=== PATIENT | female | born 1950 | race Caucasian/White ===

== ENCOUNTER → 2016-06-03 | Outpatient (CLI) | payer MEDICARE ==
--- NOTE | 2016-06-04 13:13 | MM ---
Reason for exam: screening (asymptomatic). Last mammogram was performed 1 year and 7 months ago. History: Patient is postmenopausal and has history of colon cancer at age 43. Took hormonal contraceptives for 1 year beginning at age 18. Physical Findings: A clinical breast exam by your physician is recommended on an annual basis and results should be correlated with mammographic findings. MG Screening Mammo w CAD Bilateral CC and MLO view(s) were taken. Prior study comparison: November 09, 2014, bilateral MG screening mammo w CAD. December 26, 2012, bilateral digital screening mammo w/CAD. There are scattered fibroglandular densities. No significant changes when compared with prior studies. ASSESSMENT: Benign, BI-RAD 2 RECOMMENDATION: Routine screening mammogram of both breasts in 1 year.
== END | disposition home or self-care (01) ==
LOC: RADMAMWWP 10:51
PROVIDERS: ATTEND Internal Medicine
DX: Z12.31 Encounter for screening mammogram for malignant neoplasm of breast (principal)

== ENCOUNTER 2016-10-27 07:47 | Day surgery (SDC) | payer MEDICARE ==
[2016-10-21 10:35] VITALS: BMI 26.5
[~2016-10-27 07:47] MED LIST: LACTATED RINGERS 1,000 ML IV SCH
[2016-10-27] MEDS: PHENYLEPHRINE 10% OPHTH DROPS 5 ML BTL OP ONE ×3 (09:01→09:23)
[2016-10-27] MEDS: CYCLOPENTOLATE 1% OPHTH SOLN 2 ML BTL OP ONE ×3 (09:06→09:26)
[2016-10-27 09:08] VITALS: RESP 16; TEMP 97.6
[2016-10-27] MEDS: FLURBIPROFEN 0.03% OPHTH DROPS 2.5 ML BTL OP ONE ×3 (09:09→09:29)
[2016-10-27] MEDS ORDERED: LIDOCAINE 1% 20 ML VIAL (10MG/ML) FOR IV START INTRADERMA ONE (09:21)
[2016-10-27] MEDS ORDERED: DEXAMETHASONE SOD PHOSPHATE 10 MG/ML 1 ML VIAL IV ONE (09:27)
[2016-10-27] MEDS ORDERED: ONDANSETRON 4 MG/2 ML VIAL IVP ONE (09:27)
[2016-10-27] MEDS ORDERED: fentaNYL (PF) 50 MCG/ML 2 ML AMP ONE (09:52)
[2016-10-27] MEDS ORDERED: PROPOFOL 10 MG/ML 20 ML VIAL IV ONE (09:52)
[2016-10-27] MEDS ORDERED: MIDAZOLAM 2 MG/2 ML VIAL ONE (09:52)
[2016-10-27] MEDS ORDERED: HYALURONATE SODIUM INTRAOCULAR 1 EACH SYRINGE (10MG/ML) INTRAOCULA ONE (10:03)
[2016-10-27] MEDS ORDERED: BALANCED SALT IRRIG SOLN COMB2 15 ML IRRIG.SOLN INTRAOCULA ONE (10:03)
[2016-10-27] MEDS ORDERED: EPINEPHrine (PF) 0.5 ML in BALANCED SALT IRRIG SOLN COMB2 500 ML IRRIGATION ONE (10:05)
--- NOTE | 2016-10-27 10:15 | P.OP ---
Date of Procedure: 10/27/16 Preoperative Diagnosis: Postoperative Diagnosis: Procedure(s) Performed: PREOPERATIVE DIAGNOSIS: Cataract, right eye. POSTOPERATIVE DIAGNOSIS: Cataract, right eye. OPERATION: Phacoemulsification cataract, right eye. DESCRIPTION OF PROCEDURE: The patient was taken to the preoperative holding area. Intravenous Propofol was given so as to bring about adequate sedation. The following mixture was given for local anesthesia: 5 mL of 2% lidocaine, 5 mL of 0.75% Marcaine, and 1 mL of Wydase. Approximately 4 mL was injected in the retrobulbar space of the surgical eye. Additional 1 mL was then directed to the temporal area of the surgical eye. This was performed to allow adequate neurological block of the facial muscles. The patient was revived and then taken into the operative room. The patient was prepped and draped in the usual sterile manner for the operative eye. A lid speculum was put into position. The conjunctiva was resected back from the limbus in the 12 o'clock position. Bleeding was controlled with electrocautery. A #69 blade was then used and a half-thickness scleral incision approximately 1-mm posterior to the limbus was made on bare sclera. This was shelved in the clear cornea using a crescent knife. Next a 15-degree blade was used to make a stab incision at the 3 o' clock position at the corneolimbal interface. Keratome blade was then used and the superior wound was extended into the anterior chamber. Viscoelastic was injected into the anterior chamber and to maintain its form. Next, a cystotome was used and a continuous anterior capsulotomy was made without difficulty. Hydrodissection using a blunt cannula and BSS was performed. Phaco probe was then employed and a groove extending from 12 to 6 o'clock in the lens was created. A Terell wand was used through the stab incision so as to perform a divide and conquer technique. Next an irrigation aspiration probe was utilized and any residual cortex was removed from the eye. Again, viscoelastic was injected into the anterior chamber. An Paulo posterior chamber lens implant was placed in the cartridge and injected into the anterior chamber without difficulty. The [employer] Groupey hook was utilized to spin the lens into position and this was again performed without any difficulty. The irrigation and aspiration probe was again employed and any residual viscoelastic was removed from the eye. Then BSS was injected into the limbal stab incision and the anterior chamber re-inflated. The conjunctiva was reapproximated using electrocautery. One drop of 0.25% Timoptic was placed over the corneal along with TobraDex ophthalmic ointment. Two sterile patches and a Stein eye shield were taped into position. The patient was transported to the recovery room in stable condition. Implants: Pathology: none sent Condition: stable Disposition: same day Indications for Procedure: Operative Findings: Description of Procedure:
[2016-10-27 10:37] VITALS: BP 174/86; PULSE 66
[2016-10-27] MEDS ORDERED: BUPIVACAINE (PF) 0.75% 5 ML, LIDOCAINE 4% (PF) 5 ML, HYALURONIDASE, HUMAN RECOMB 150 UNIT MISCELLANE ONE ×3 (23:00)
[2016-10-27] MEDS ORDERED: GENTAMICIN/PREDNISOL AC OPHTH OINT 3.5GM OPHTHALMIC ONE (23:00)
[2016-10-27] MEDS ORDERED: TIMOLOL 0.5% OPHTH SOLN (PF) 0.2 ML DROPERETTE OP ONE (23:00)
== END 2016-10-27 10:55 | disposition home or self-care (01) ==
LOC: OR 07:47
PROVIDERS: ATTEND Ophthalmology
DX: H26.9 Unspecified cataract (principal); I10 Essential (primary) hypertension; F17.200 Nicotine dependence, unspecified, uncomplicated; Z85.038 Personal history of other malignant neoplasm of large intestine; Z79.82 Long term (current) use of aspirin; Z79.899 Other long term (current) drug therapy
CPT/HCPCS: 66984; V2632; J2001; J2250; J3470; J1100; J2405; J0171; J3010; J2704

== ENCOUNTER → 2017-09-01 | Outpatient (CLI) | payer MEDICARE ==
--- NOTE | 2017-09-02 10:52 | MM ---
Reason for exam: screening (asymptomatic). Last mammogram was performed 1 year and 3 months ago. History: Patient is postmenopausal and has history of colon cancer at age 43. Took hormonal contraceptives for 1 year beginning at age 18. Physical Findings: A clinical breast exam by your physician is recommended on an annual basis and results should be correlated with mammographic findings. MG 3D Screening Mammo W/Cad Bilateral CC and MLO view(s) were taken. Prior study comparison: June 03, 2016, bilateral MG screening mammo w CAD. November 09, 2014, bilateral MG screening mammo w CAD. There are scattered fibroglandular densities. There is no discrete abnormality. Benign bilateral axillary lymph nodes are redemonstrated. ASSESSMENT: Negative, BI-RAD 1 RECOMMENDATION: Routine screening mammogram of both breasts in 1 year.
== END | disposition home or self-care (01) ==
LOC: RADMAMWWP 11:22
PROVIDERS: ATTEND Internal Medicine
DX: Z12.31 Encounter for screening mammogram for malignant neoplasm of breast (principal)
CPT/HCPCS: 77063; 77067

== ENCOUNTER 2018-05-04 11:01 | Emergency (ER) | payer MEDICARE ==
[2018-05-04 11:08] VITALS: RESP 18
[2018-05-04] MEDS ORDERED: LIDOCAINE 5% PATCH TOPICAL STA (11:43)
[2018-05-04] MEDS ORDERED: HYDROcodone/APAP 5-325MG 1 EACH TAB PO STA (11:43)
--- NOTE | 2018-05-04 12:12 | ED ---
General Adult HPI - General Chief complaint: Skin/Abscess/Foreign Body Stated complaint: in pain/not sleeping Time Seen by Provider: 05/04/18 11:10 Source: patient, RN notes reviewed Mode of arrival: ambulatory Limitations: no limitations - History of Present Illness Initial comments: Patient 68-year-old female presenting to the emergency room today with a chief complaint of a she was rash to the right side. She does admit that she saw the family doctor was diagnosed this started antiviral medications. She's been using ibuprofen for pain with little relief of the symptoms. States she has not been able to sleep. Patient denies any other complaints symptoms. Patient denies any recent fever, chills, shortness of breath, chest pain, back pain, abdominal pain, nausea or vomiting, headaches or visual changes, or any other complaints. - Related Data Home Medications Medication Instructions Recorded Confirmed Aspirin 325 mg PO DAILY 04/14/16 05/04/18 Atenolol [Tenormin] 50 mg PO DAILY 04/14/16 05/04/18 Ergocalciferol [Vitamin D2] 50,000 unit PO WE 04/14/16 05/04/18 Lisinopril-Hctz 20-25 mg 1 tab PO DAILY 05/04/18 05/04/18 [Zestoretic 20-25] valACYclovir HCL [Valtrex] 1,000 mg PO Q12HR 05/04/18 05/04/18 Previous Rx's Medication Instructions Recorded Hydrocodone/Acetaminophen [[place] 1 each PO Q6HR PRN #12 tab 05/04/18 5-325] Lidocaine [Lidoderm 5% Patch] 1 patch TRANSDERM DAILY #7 patch 05/04/18 Allergies Allergy/AdvReac Type Severity Reaction Status Date / Time No Known Allergies Allergy Verified 05/04/18 11:26 Review of Systems ROS Statement: Those systems with pertinent positive or pertinent negative responses have been documented in the HPI. ROS Other: All systems not noted in ROS Statement are negative. Past Medical History Past Medical History: Cancer, Hypertension Additional Past Medical History / Comment(s): colon and liver ca History of Any Multi-Drug Resistant Organisms: None Reported Past Surgical History: Bowel Resection, Hysterectomy Additional Past Surgical History / Comment(s): lymph node removed right axilla, LIVER SURGERY FOR COLON CANCER X 6 YEARS AGO Past Anesthesia/Blood Transfusion Reactions: Previous Problems w/ Anesthesia Additional Past Anesthesia/Blood Transfusion Reaction / Comment(s): Aspirated one time from colonoscopy anesthesia Past Psychological History: No Psychological Hx Reported Smoking Status: Current every day smoker Past Alcohol Use History: None Reported Past Drug Use History: None Reported - Past Family History Mother Family Medical History: Unable to Obtain General Exam - General Exam Comments Initial Comments: General: The patient is awake and alert, in no distress, and does not appear acutely ill. Eye: Pupils are equal, round and reactive to light, extra-ocular movements are intact. No nystagmus. There is normal conjunctiva bilaterally. No signs of icterus. Ears, nose, mouth and throat: There are moist mucous membranes and no oral lesions. Neck: The neck is supple, there is no tenderness or JVD. Cardiovascular: There is a regular rate and rhythm. No murmur, rub or gallop is appreciated. Respiratory: Lungs are clear to auscultation, respirations are non-labored, breath sounds are equal. No wheezes, stridor, rales, or rhonchi. Musculoskeletal: Normal ROM, no tenderness. Neurological: A&O x 3. CN II-XII intact, There are no obvious motor or sensory deficits. Coordination appears grossly intact. Speech is normal. Skin: Does have a few shingle spots located to the posterior aspect of the right side with a few wrap around to the front. Patient tender posteriorly in this area of the rash. Psychiatric: Cooperative, appropriate mood & affect, normal judgment. Limitations: no limitations Course Vital Signs 05/04/18 11:04 Temperature 98.0 F Pulse Rate 73 Respiratory 18 Rate Blood Pressure 187/95 O2 Sat by Pulse 98 Oximetry Medical Decision Making - Medical Decision Making Patient will be given Lidoderm patch or the emergency room also a Clearwater and short prescription to go home with the use if needed. She is advised of Lidoderm patch relief the symptoms that she does not need to take a Clearwater. She is advised that she may break the pills and a half to if needed. Disposition Clinical Impression: Herpes zoster Disposition: HOME SELF-CARE Condition: Good Instructions: Shingles (ED) Additional Instructions: Please use medication as discussed. Please follow-up with family doctor in the next 2 days of symptoms have not improved. Please return to emergency room if the symptoms increase or worsen or for any other concerns. Prescriptions: Hydrocodone/Acetaminophen [[place] 5-325] 1 each PO Q6HR PRN #12 tab PRN Reason: Pain Lidocaine [Lidoderm 5% Patch] 1 patch TRANSDERM DAILY #7 patch Is patient prescribed a controlled substance at d/c from ED?: No Referrals: Catherine Buchanan MD [Primary Care Provider] - 1-2 days Time of Disposition: 12:11
[2018-05-04 12:41] VITALS: BP 142/83; PULSE 74; TEMP 98.3
== END 2018-05-04 12:40 | disposition home or self-care (01) ==
LOC: EC 11:01
DX: B02.9 Zoster without complications (principal); I10 Essential (primary) hypertension; F17.200 Nicotine dependence, unspecified, uncomplicated; Z85.038 Personal history of other malignant neoplasm of large intestine; Z85.05 Personal history of malignant neoplasm of liver; Z90.710 Acquired absence of both cervix and uterus; Z98.890 Other specified postprocedural states; Z79.82 Long term (current) use of aspirin; Z79.899 Other long term (current) drug therapy
CPT/HCPCS: 99283

== ENCOUNTER → 2018-12-23 | Outpatient (CLI) | payer MEDICARE ==
--- NOTE | 2018-12-26 14:18 | MM ---
Reason for exam: screening (asymptomatic). Last mammogram was performed 1 year and 4 months ago. History: Patient is postmenopausal and has history of colon cancer at age 43. Took hormonal contraceptives for 1 year beginning at age 18. Physical Findings: A clinical breast exam by your physician is recommended on an annual basis and results should be correlated with mammographic findings. MG Screening Mammo w CAD Bilateral CC and MLO view(s) were taken. Prior study comparison: September 01, 2017, bilateral MG 3d screening mammo w/cad. June 03, 2016, bilateral MG screening mammo w CAD. There are scattered fibroglandular densities. There are benign appearing round calcifications bilaterally. There is no discrete abnormality. ASSESSMENT: Benign, BI-RAD 2 RECOMMENDATION: Routine screening mammogram of both breasts in 1 year.
== END | disposition home or self-care (01) ==
LOC: RADMAMWWP 11:26
PROVIDERS: ATTEND Internal Medicine
DX: Z12.31 Encounter for screening mammogram for malignant neoplasm of breast (principal)
CPT/HCPCS: 77067

== ENCOUNTER 2019-12-28 06:57 | Emergency (ER) | payer MEDICARE ==
[2019-12-28 07:13] VITALS: TEMP 97.9
[2019-12-28] MEDS ORDERED: KETOROLAC 15 MG/ML 1 ML VIAL IVP STA (07:32)
[2019-12-28] MEDS ORDERED: SODIUM CHLORIDE 0.9% 1,000 ML IV STA (07:32)
--- NOTE | 2019-12-28 07:46 | ED ---
General Adult HPI - General Chief complaint: Abdominal Pain Stated complaint: LT flank pain Time Seen by Provider: 12/28/19 07:10 Source: patient, RN notes reviewed, old records reviewed Mode of arrival: ambulatory Limitations: no limitations - History of Present Illness Initial comments: This is a 69-year-old female presents to the emergency department stating that last night at 11 PM she started having left-sided flank pain which radiates around to the abdomen. Patient states she also became very nauseated and vomited times one. Patient states it's currently much better. Patient states troponin I was a pretty constantly and Aleve did help a little bit did not take it completely away. Patient states she had no injury or trauma. Patient denies any dysuria hematuria urinary frequency. Patient denies any diarrhea. Patient denies any chest pain difficulty breathing. Patient denies any recent fever chills or cough. Patient had a kidney stone history some 25 years ago - Related Data Home Medications Medication Instructions Recorded Confirmed Aspirin 325 mg PO DAILY 04/14/16 05/04/18 Ergocalciferol [Vitamin D2] 50,000 unit PO WE 04/14/16 05/04/18 atenoloL [Tenormin] 50 mg PO DAILY 04/14/16 05/04/18 Lisinopril-Hctz 20-25 mg 1 tab PO DAILY 05/04/18 05/04/18 [Zestoretic 20-25] valACYclovir HCL [Valtrex] 1,000 mg PO Q12HR 05/04/18 05/04/18 Previous Rx's Medication Instructions Recorded Hydrocodone/Acetaminophen [[place] 1 each PO Q6HR PRN #12 tab 05/04/18 5-325] Lidocaine [Lidoderm 5% Patch] 1 patch TRANSDERM DAILY #7 patch 05/04/18 Ketorolac [Toradol] 10 mg PO Q6HR #15 tab 12/28/19 Tamsulosin [Flomax] 0.4 mg PO DAILY #10 cap 12/28/19 Allergies Allergy/AdvReac Type Severity Reaction Status Date / Time No Known Allergies Allergy Verified 05/04/18 11:26 Review of Systems ROS Statement: Those systems with pertinent positive or pertinent negative responses have been documented in the HPI. ROS Other: All systems not noted in ROS Statement are negative. Past Medical History Past Medical History: Cancer, Hypertension Additional Past Medical History / Comment(s): colon and liver ca History of Any Multi-Drug Resistant Organisms: None Reported Past Surgical History: Bowel Resection, Hysterectomy Additional Past Surgical History / Comment(s): lymph node removed right axilla, LIVER SURGERY FOR COLON CANCER X 6 YEARS AGO Past Anesthesia/Blood Transfusion Reactions: Previous Problems w/ Anesthesia Additional Past Anesthesia/Blood Transfusion Reaction / Comment(s): Aspirated one time from colonoscopy anesthesia Past Psychological History: No Psychological Hx Reported Smoking Status: Current every day smoker Past Alcohol Use History: None Reported Past Drug Use History: None Reported - Past Family History Mother Family Medical History: Unable to Obtain General Exam - General Exam Comments Initial Comments: GENERAL: Patient is well-developed and well-nourished. Patient is nontoxic and well- hydrated and is in mild distress. ENT: Neck is soft and supple. No significant lymphadenopathy is noted. Oropharynx is clear. Moist mucous membranes. Neck has full range of motion without eliciting any pain. EYES: The sclera were anicteric and conjunctiva were pink and moist. Extraocular movements were intact and pupils were equal round and reactive to light. Eyelids were unremarkable. PULMONARY: Unlabored respirations. Good breath sounds bilaterally. No audible rales rhonchi or wheezing was noted. CARDIOVASCULAR: There is a regular rate and rhythm without any murmurs gallops or rubs. ABDOMEN: Soft and nontender with normal bowel sounds. SKIN: Skin is clear with no lesions or rashes and otherwise unremarkable. NEUROLOGIC: Patient is alert and oriented x3. Cranial nerves II through XII are grossly intact. Motor and sensory are also intact. Normal speech, volume and content. Symmetrical smile. MUSCULOSKELETAL: Normal extremities with adequate strength and full range of motion. No lower extremity swelling or edema. No calf tenderness. LYMPHATICS: No significant lymphadenopathy is noted PSYCHIATRIC: Normal psychiatric evaluation. Limitations: no limitations Course Vital Signs 12/28/19 07:10 Temperature 97.9 F Pulse Rate 86 Respiratory 19 Rate Blood Pressure 179/102 O2 Sat by Pulse 98 Oximetry Medical Decision Making - Medical Decision Making Computed tomography scan shows a 3 mm stone in the left UVJ. Patient received Toradol Dilaudid and Zofran emergency department. - Lab Data Result diagrams: 12/28/19 07:48 12/28/19 07:48 Lab Results 12/28/19 12/28/19 12/28/19 Range/Units 07:48 07:48 07:48 WBC 10.5 (3.8-10.6) k/uL RBC 4.46 (3.80-5.40) m/uL Hgb 14.1 (11.4-16.0) gm/dL Hct 42.0 (34.0-46.0) % MCV 94.1 (80.0-100.0) fL MCH 31.7 (25.0-35.0) pg MCHC 33.7 (31.0-37.0) g/dL RDW 12.2 (11.5-15.5) % Plt Count 219 (150-450) k/uL Neutrophils % 88 % Lymphocytes % 9 % Monocytes % 3 % Eosinophils % 0 % Basophils % 1 % Neutrophils # 9.2 H (1.3-7.7) k/uL Lymphocytes # 0.9 L (1.0-4.8) k/uL Monocytes # 0.3 (0-1.0) k/uL Eosinophils # 0.0 (0-0.7) k/uL Basophils # 0.1 (0-0.2) k/uL Sodium 139 (137-145) mmol/L Potassium 3.7 (3.5-5.1) mmol/L Chloride 106 (98-107) mmol/L Carbon Dioxide 22 (22-30) mmol/L Anion Gap 11 mmol/L BUN 18 H (7-17) mg/dL Creatinine 1.11 H (0.52-1.04) mg/dL Est GFR (CKD-EPI)AfAm 58 (>60 ml/min/1.73 sqM) Est GFR (CKD-EPI)NonAf 50 (>60 ml/min/1.73 sqM) Glucose 125 H (74-99) mg/dL Calcium 10.3 H (8.4-10.2) mg/dL Total Bilirubin 0.5 (0.2-1.3) mg/dL AST 25 (14-36) U/L ALT 19 (4-34) U/L Alkaline Phosphatase 72 (38-126) U/L Total Protein 7.7 (6.3-8.2) g/dL Albumin 4.0 (3.5-5.0) g/dL Amylase 44 (30-110) U/L Lipase 106 (23-300) U/L Urine Color Yellow Urine Appearance Cloudy H (Clear) Urine pH 5.5 (5.0-8.0) Ur Specific [place] 1.024 (1.001-1.035) Urine Protein Trace H (Negative) Urine Glucose (UA) Negative (Negative) Urine Ketones Negative (Negative) Urine Blood Moderate H (Negative) Urine Nitrite Negative (Negative) Urine Bilirubin Negative (Negative) Urine Urobilinogen <2.0 (<2.0) mg/dL Ur Leukocyte Esterase Moderate H (Negative) Urine RBC 79 H (0-5) /hpf Urine WBC 40 H (0-5) /hpf Ur Squamous Epith Cells 1 (0-4) /hpf Calcium Oxalate Crystal Many H (None) /hpf Amorphous Sediment Rare H (None) /hpf Urine Bacteria Rare H (None) /hpf Hyaline Casts 3 H (0-2) /lpf Urine Mucus Rare H (None) /hpf Disposition Clinical Impression: Kidney stone on left side Disposition: HOME SELF-CARE Condition: Good Prescriptions: Tamsulosin [Flomax] 0.4 mg PO DAILY #10 cap Ketorolac [Toradol] 10 mg PO Q6HR #15 tab Is patient prescribed a controlled substance at d/c from ED?: No Referrals: Lexx Florentino MD [STAFF PHYSICIAN] - 1-2 days Time of Disposition: 09:06
[2019-12-28 08:06] LABS: Basophils # (A) 0.1 k/uL (0-0.2); Basophils % (A) 1 %; Eosinophils % (A) 0 %; HGB 14.1 gm/dL (11.4-16.0); Lymphocytes # (A) 0.9 k/uL (1.0-4.8); Lymphocytes % (A) 9 %; MCH 31.7 pg (25.0-35.0); MCHC 33.7 g/dL (31.0-37.0); MCV 94.1 fL (80.0-100.0); Mean Platelet Volume 7.6; Monocytes # (A) 0.3 k/uL (0-1.0); Monocytes % (A) 3 %; Neutrophils # (A) 9.2 k/uL (1.3-7.7); Neutrophils % (A) 88 %; Platelet Count 219 k/uL (150-450); RBC 4.46 m/uL (3.80-5.40); RDW 12.2 % (11.5-15.5); WBC 10.5 k/uL (3.8-10.6)
[2019-12-28 08:16] LABS: Calcium 10.3 mg/dL (8.4-10.2); Potassium 3.7 mmol/L (3.5-5.1); Total Bilirubin 0.5 mg/dL (0.2-1.3); Total Protein 7.7 g/dL (6.3-8.2)
[2019-12-28 08:29] LABS: Amorphous Sediment,Urine Rare /hpf; Appearance,Urine Cloudy (Clear); Bacteria,Urine Rare /hpf; Bilirubin,Urine Negative (Negative); Blood,Urine Moderate (Negative); Calcium Oxalate Crystals,Urine Many /hpf; Color,Urine Yellow; Glucose,Urine (UA) Negative (Negative); Hyaline Casts,Urine 3 /lpf (0-2); Ketones,Urine Negative (Negative); Leukocyte Esterase,Urine Moderate (Negative); Mucus,Urine Rare /hpf; Nitrite,Urine Negative (Negative); PH, Urine 5.5 (5.0-8.0); Protein,Urine Trace (Negative); RBC,Urine 79 /hpf (0-5); Specific Gravity,Urine 1.024 (1.001-1.035); Squamous Epithelial Cell,Urine 1 /hpf (0-4); Urobilinogen,Urine <2.0 mg/dL (<2.0); WBC,Urine 40 /hpf (0-5)
--- NOTE | 2019-12-28 08:37 | CT ---
EXAMINATION TYPE: CT abdomen pelvis wo con DATE OF EXAM: 12/28/2019 HISTORY: Lt flank pain CT DLP: 584.5 mGycm. Automated Exposure Control for Dose Reduction was Utilized. TECHNIQUE: CT scan of the abdomen and pelvis is performed without oral or IV contrast. COMPARISON: MRI kidney May 06, 2015. CT abdomen and pelvis September 27, 2013 . FINDINGS: Within the limitations of a non-contrast study, the following observations are made. LUNG BASES: Mild cardiomegaly is present. LIVER/GB: Stable posterior calcification near right liver margin axial image 35 presumed benign. PANCREAS: No significant abnormality is seen. SPLEEN: Stable diffuse small calcifications in the spleen presumed benign.. ADRENALS: Persistent right adrenal mass now measuring 3.3 x 2.1 cm axial image 33 perhaps slightly la rger from older studies. This mass has areas of calcification and low density. Suspect benign myolipo ma. KIDNEYS: There is new 3 mm nonobstructing calculus upper pole right kidney coronal image 64. No right -sided hydronephrosis. Some motion artifact degradation but suspect new 1 to 2 mm nonobstructing calc ulus lower pole of the left kidney coronal image 61. New 3 mm obstructing calculus left UVJ axial brendan ge 116 is causing mild to moderate left-sided hydronephrosis and hydroureter with mild to moderate pe rinephric fat stranding along the proximal to mid left ureter. Poorly distended bladder with lobulate d contour. Prior exophytic cystic lesion upper pole of the right kidney is not seen and presumed has been aspirated or surgically removed or treated in interval. BOWEL: Sigmoid colonic diverticulosis. Surgical changes from right partial colectomy and small bowel anastomosis. Prominent vessel in the right paracolic gutter is redemonstrated. GENITAL ORGANS: Uterus surgically absent or markedly atrophic. LYMPH NODES: No greater than 1cm abdominal or pelvic lymph nodes are appreciated. OSSEOUS STRUCTURES: Grade 1 anterolisthesis L4 on L5. OTHER: [id number] calcified plaque abdominal aorta extends into branch vessels. IMPRESSION: There is new 3 mm calculus at left UVJ causing [id number] left-sided hydronephrosis .
--- NOTE | 2019-12-28 08:43 | XR ---
EXAMINATION TYPE: XR KUB DATE OF EXAM: 12/28/2019 8:27 AM CLINICAL HISTORY: Left flank pain, history of kidney stones. TECHNIQUE: Single upright KUB image of the abdomen is obtained. COMPARISON: CT abdomen and pelvis study earlier today. FINDINGS: Scattered gas is seen in non-distended stomach and small bowel loops. Gas and fecal materia l is seen in non-distended colon. Vascular calcification of the gastric region and in the periphery o f the pelvis. Cardiomegaly is present. No pneumoperitoneum. IMPRESSION: Overall nonobstructive bowel gas pattern. The 3 mm calculus at left UVJ on CT is less wel l seen on plain film due to size and patient's body habitus.
[2019-12-28] MEDS ORDERED: ONDANSETRON 4 MG/2 ML VIAL IVP STA (08:51)
[2019-12-28] MEDS ORDERED: HYDROmorphone 0.5 MG/0.5 ML SYRINGE IVP STA (08:51)
[2019-12-28] MEDS ORDERED: ACET/COD 300 MG/30 MG STARTER PACK 6 TAB BTL PO STA (09:07)
[2019-12-28 09:44] VITALS: BP 169/99; PULSE 92; RESP 16
== END 2019-12-28 09:44 | disposition home or self-care (01) ==
LOC: EC 06:57
DX: N13.2 Hydronephrosis with renal and ureteral calculous obstruction (principal); I10 Essential (primary) hypertension; F17.200 Nicotine dependence, unspecified, uncomplicated; Z79.82 Long term (current) use of aspirin; Z79.899 Other long term (current) drug therapy; Z85.038 Personal history of other malignant neoplasm of large intestine; Z85.05 Personal history of malignant neoplasm of liver
CPT/HCPCS: 36415; 80053; 82150; 83690; 85025; 81001; 87086; 74018; 74176; 99285; 96374; 96375 ×2; 96361; J2405; J1885; J1170

== ENCOUNTER → 2021-02-20 | Outpatient (CLI) | payer MEDICARE ==
--- NOTE | 2021-02-20 16:14 | BD ---
EXAMINATION TYPE: Axial Bone Density DATE OF EXAM: 02/20/2021 COMPARISON: NONE CLINICAL HISTORY: 70 YR OLD FEMALE......ICD-10 CODE: N95.8 MENOPAUSAL Height: 59.8 Weight: 150 FRAX RISK QUESTIONS: Secondary Osteoporosis: YES 3. Menopause before 45: YES 5. Chronic liver disease: METS TO LOBE, REMOVAL, FROM COLON CA Current Tobacco Use: YES RISK FACTORS HISTORY OF: Postmenopausal woman: YES AT 30 YRS OLD...TOTAL HYST Take estrogen and/or progesterone medications: YES, FOR AT ABOUT A YR ONLY Hyperparathyroidism: YES, SURGICAL REMOVAL OF 1 OR 2 Adrenal Insufficiency: NO MEDICATIONS: Additional Medications: BP MEDS, CHEMO HX FOR COLON CA, VIT D Additional History: RENAL HX, STONES, HYPERCALCINEMIA, HYPERTENSION, HX OF COLON CA, HYPERPARATHYROID ISM EXAM MEASUREMENTS: Bone mineral densitometry was performed using the [employer] System. Bone mineral density as measured about the Lumbar spine is: ----- L1-L4(G/cm2): 1.058 T Score Values are as follows: ----- L1: -0.8 ----- L2: -3.0 ----- L3: -1.4 ----- L4: 1.3 ----- L1-L4: -1.0 Bone mineral density FIRST DEXA AT [facility] Bone mineral density about the R hip (g/cm2): 0.816 Bone mineral density about the L hip (g/cm2): 0.834 T Score values are as follows: -----R Neck: -1.4 -----L Neck: -1.5 -----R Total: -1.5 -----L Total: -1.4 Bone mineral density FIRST DEXA AT [facility] FRAX%s: THERE IS A 11.1% CHANCE FOR A MAJOR OSTEOPOROTIC FX AND A 3.1% FOR HIP......PROBABILITY FO R FX IN 10 YRS TIME IMPRESSION: Osteopenia (T Score between -2.5 and -1). There is slightly increased risk of fracture and the patient may be considered for treatment. Re-Screen 2-5 years. NOTE: T-SCORE=SD OF THE YOUNG ADULT MEAN.
== END | disposition home or self-care (01) ==
LOC: RADBDWWP 10:39
PROVIDERS: ATTEND Internal Medicine
DX: M81.0 Age-related osteoporosis without current pathological fracture (principal); M85.89 Other specified disorders of bone density and structure, multiple sites; Z78.0 Asymptomatic menopausal state; Z85.038 Personal history of other malignant neoplasm of large intestine
CPT/HCPCS: 77080

== ENCOUNTER → 2022-01-20 | Outpatient (CLI) | payer MEDICARE | END | disposition home or self-care (01) | LOC: LABWHC1 15:46 | PROVIDERS: ATTEND Internal Medicine | DX: E83.52 Hypercalcemia (principal) | CPT/HCPCS: 36415; 82330 ==

== ENCOUNTER → 2022-03-23 | Outpatient (CLI) | payer MEDICARE | END | disposition home or self-care (01) | LOC: LABPAT 14:19 | PROVIDERS: ATTEND Orthopaedic Surgery | DX: Z01.812 Encounter for preprocedural laboratory examination (principal); M16.11 Unilateral primary osteoarthritis, right hip; Z22.322 Carrier or suspected carrier of Methicillin resistant Staphylococcus aureus | CPT/HCPCS: 87070 ==

== ENCOUNTER 2022-04-16 06:48 | Day surgery (SDC) | payer MEDICARE ==
[2022-04-14 10:14] VITALS: BMI 28.3
[~2022-04-16 06:48] MED LIST changes: +ALPRAZolam 0.25 MG TAB PO PRN; +ALPRAZolam 0.5 MG TAB PO PRN; +ASPIRIN 325 MG TAB PO STA; +ATORVASTATIN 80 MG TAB PO STA; +HEPARIN SODIUM,PORCINE 10,000 UNIT in SODIUM CHLORIDE 0.9% 1,000 ML IRRIGATION PRN; +HEPARIN SODIUM,PORCINE 2,500 UNIT in SODIUM CHLORIDE 0.9% 250 ML IRRIGATION PRN; -LACTATED RINGERS 1,000 ML IV SCH; +NITROGLYCERIN SL TABS 0.4 MG TAB SUBLINGUAL PRN; +SODIUM CHLORIDE 0.9% 1,000 ML in EMPTY BAG 1 BAG IV ONE
[2022-04-16 07:14] VITALS: RESP 18; TEMP 98.4
[2022-04-16 07:25] LABS: Calcium 10.3 mg/dL (8.4-10.2); Potassium 4.3 mmol/L (3.5-5.1)
[2022-04-16] MEDS ORDERED: HEPARIN SODIUM 1,000 UN/ML (10ML VL) ONE (09:28)
[2022-04-16] MEDS ORDERED: fentaNYL (PF) 50 MCG/ML 2 ML AMP ONE (09:28)
[2022-04-16] MEDS ORDERED: fentaNYL (PF) 50 MCG/1 ML VIAL IVP ONE (09:38)
[2022-04-16] MEDS ORDERED: LIDOCAINE 1% INJ 10MG/ML (5 ML VIAL-PF) SQ ONE (09:40)
[2022-04-16] MEDS ORDERED: VERAPAMIL SYRINGE (5 MG/10 ML) INTRAARTER ONE (09:42)
[2022-04-16] MEDS: HEPARIN SODIUM 1,000 UN/ML (10ML VL) IV ONE ×2 (09:52→10:18)
[2022-04-16] MEDS ORDERED: CLOPIDOGREL 75 MG TAB ONE (09:54)
[2022-04-16] MEDS: MIDAZOLAM 2 MG/2 ML VIAL IVP ONE ×2 (10:01→10:04)
[2022-04-16] MEDS ORDERED: CLOPIDOGREL 75 MG TAB PO ONE (10:01)
[2022-04-16] MEDS ORDERED: NITROGLYCERIN 1000MCG/10ML SYRINGE INTRACORON ONE (10:07)
[2022-04-16] MEDS ORDERED: IOPAMIDOL-370 125ML BTL INJ ONE (10:14)
[2022-04-16] MEDS ORDERED: NITROGLYCERIN SL TABS 0.4 MG TAB SUBLINGUAL PRN (10:22)
[2022-04-16] MEDS ORDERED: ZOLPIDEM 5 MG TAB PO PRN (10:22)
[2022-04-16] MEDS ORDERED: ATROPINE SULFATE 0.1 MG/ML 10ML SYRINGE IV PRN (10:22)
[2022-04-16] MEDS ORDERED: MAG HYDROX/AL HYDROX/SIMETH 30 ML CUP PO PRN (10:22)
[2022-04-16] MEDS ORDERED: RX INFO: IV CONTRAST WAS GIVEN 1 EACH MISC MISCELLANE PRN (10:22)
[2022-04-16] MEDS ORDERED: SODIUM CHLORIDE 0.9% 1,000 ML in EMPTY BAG 1 BAG IV SCH (10:30)
--- NOTE | 2022-04-16 10:35 | P.CARDCATH ---
Date of Procedure: 04/16/22 Description of Procedure: Cardiac Catheterization: The patient is a 72-year-old female known history of hypertension, chronic tobacco use was scheduled to undergo orthopedic surgery and had a normal MPI with anteroapical wall ischemia. Recommendations were made regarding cardiac catheterization, the risks and the complications were discussed with the patient who is in full understanding and agreement. 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 Using Xylocaine Anesthesia and Seldinger technique, a 6-Belizean sheath was introduced in the right radial artery . Subsequently, selective coronary angiography was performed using a 5-Belizean 3.5 bend right Tian and 4 bend left Tian catheter. Multiple views of the coronary artery including hemiaxial views were obtained. The 5-Belizean pigatail catheter was used to cross the aortic valve and LVEDP was calculated. After removing the catheters a 6-Belizean EBU 4 guiding catheter was introduced in the system and after cannulating the left main a 0.014 BMW J-wire was advanced and positioned in the distal LAD, subsequently 3.0 x 12 mm NC Treck balloon was advanced into inflation at maximum of 8 romeo [address] done. After removing the balloon 3.5 x 15 mm Xience tim point stent was advanced and deployed at 16 romeo. After removing the balloon and the wire images were obtained and revealed stable successful stenting. Following that, catheter and sheath were removed. Hemostasis was obtained with deployment of TR band . There was no immediate complication. Patient was returned to room in stable condition. Of note, the patient received a total of 5500 units of intravenous heparin as well as intra- arterial verapamil. She received an oral loading dose of clopidogrel. Her ACT was monitored. She had no significant EKG changes or chest discomfort with inflation. Findings: Left main: This is a large size vessel, bifurcating left circumflex and LAD, left main has no high-grade stenosis LAD: This is a large size vessel, reaching to the apex with a wraparound the apex segment, giving rise to 2 diagonal branch of small to moderate caliber. At the takeoff of the second diagonal branch there is an 85%, the diagonal branch 70% to 80% stenosis in the midsegment the vessel beyond that is small in caliber. Left circumflex: This is a large codominant vessel, bifurcating distally to PDA and PLV and giving rise to a large obtuse marginal branch in the midsegment, the left circumflex has no high-grade stenosis RCA: This is a small codominant vessel that has no evidence of high-grade stenosis Left Ventriculogram: Not performed Hemodynamics: There was no gradient across the aortic valve, LVEDP was 15-20 mmHg Conclusion: 1. Critical stenosis involving the mid LAD 2. No evidence of significant obstructive disease in the left circumflex and RCA 3. Codominant system 4. Successful stenting of the mid LAD with reduction of stenosis from 85% to 0%. HAO 3 flow in the diagonal branch that is diffusely diseased. Recommendations: The patient will continue on aspirin and Plavix without any interruption for 6 months in addition to aggressive coronary risks modifications and smoking cessation. The findings and the recommendations were discussed with the patient and the family and they were in full understanding and agreement. Duration of sedation is 37 minutes.
[2022-04-16 15:25] VITALS: BP 146/64; PULSE 65
[2022-04-17] MEDS ORDERED: ASPIRIN 81 MG PO SCH (09:00)
[2022-04-17] MEDS ORDERED: atenoloL 50 MG TAB PO SCH (09:00)
[2022-04-17] MEDS ORDERED: ATORVASTATIN 40 MG TAB PO SCH (09:00)
[2022-04-17] MEDS ORDERED: CLOPIDOGREL 75 MG TAB PO SCH (09:00)
[2022-04-17] MEDS ORDERED: amLODIPine 5 MG TAB PO SCH (09:00)
[2022-04-17] MEDS ORDERED: LISINOPRIL-HCTZ 20-25 MG 1 EACH TAB PO SCH (09:00)
== END 2022-04-16 15:20 | disposition home or self-care (01) ==
LOC: CATHCVL 06:48
PROVIDERS: ATTEND Internal Medicine Interventional Cardiology
DX: I25.10 Atherosclerotic heart disease of native coronary artery without angina pectoris (principal); I35.0 Nonrheumatic aortic (valve) stenosis; I10 Essential (primary) hypertension; F17.210 Nicotine dependence, cigarettes, uncomplicated; Z96.649 Presence of unspecified artificial hip joint; Z82.49 Family history of ischemic heart disease and other diseases of the circulatory system; Z90.49 Acquired absence of other specified parts of digestive tract; Z98.890 Other specified postprocedural states; Z71.6 Tobacco abuse counseling; Z79.01 Long term (current) use of anticoagulants; Z79.02 Long term (current) use of antithrombotics/antiplatelets; Z79.891 Long term (current) use of opiate analgesic; Z79.811 Long term (current) use of aromatase inhibitors; Z79.899 Other long term (current) drug therapy
CPT/HCPCS: 93458; 80048; C1769 ×3; C9600; C1887; C1894; C1874; C1725; J2250; J2001; J1644; Q9967; J3010

== ENCOUNTER → 2022-06-25 | Outpatient (CLI) | payer MEDICARE ==
[2022-06-25 10:41] LABS: ALT 17 U/L (8-44); AST 19 U/L (13-35); Chol/HDL Ratio 4.69 Ratio; LDL Cholesterol,Calculated 120.3 mg/dL (0.0-131.0)
== END | disposition home or self-care (01) ==
LOC: LABWHC1 07:21
PROVIDERS: ATTEND Nurse Practitioner Adult Health
DX: I10 Essential (primary) hypertension (principal); I35.1 Nonrheumatic aortic (valve) insufficiency; I25.10 Atherosclerotic heart disease of native coronary artery without angina pectoris; E78.2 Mixed hyperlipidemia
CPT/HCPCS: 36415; 80061; 84450; 84460

== ENCOUNTER 2022-07-14 09:02 | Emergency (ER) | payer MEDICARE ==
[2022-07-14 09:11] VITALS: RESP 18; TEMP 97.7
[2022-07-14] MEDS ORDERED: SODIUM CHLORIDE 0.9% 1,000 ML IV STA (09:14)
--- NOTE | 2022-07-14 09:43 | ED ---
General Adult HPI - General Chief complaint: Upper Respiratory Infection Stated complaint: bodyaches Time Seen by Provider: 07/14/22 09:05 Source: patient Mode of arrival: ambulatory Limitations: no limitations - History of Present Illness Initial comments: Dictation was produced using [employer] dictation software. please excuse any grammatical, word or spelling errors. Chief Complaint: 72-year-old female presents emergency department for myalgias, fatigue runny nose and diarrhea. History of Present Illness: Is a 72-year-old female presents emergency Department with 3 days of fatigue and URI type symptoms. Patient tested positive for COVID-19 today. Patient's was sick prior to patient getting sick. Denies any abdominal pain. No shortness of breath. She did have some sneezing 3 days ago that it improved. Denies any shortness of breath. Patient's vaccinated COVID-19. The ROS documented in this emergency department record has been reviewed and confirmed by me. Those systems with pertinent positive or negative responses have been documented in the HPI. All other systems are other negative and/or no ncontributory. PHYSICAL EXAM: General Impression: Alert and oriented x3, not in acute distress HEENT: Normocephalic atraumatic, extra-ocular movements intact, pupils equal and reactive to light bilaterally, mucous membranes moist. Cardiovascular: Heart regular rate and rhythm Chest: Able to complete full sentences, no retractions, no tachypnea Abdomen: abdomen soft, non-tender, non-distended, no organomegaly Musculoskeletal: Pulses present and equal in all extremities, no peripheral edema Motor: no focal deficits noted Neurological: CN II-XII grossly intact, no focal motor or sensory deficits noted Skin: Intact with no visualized rashes Psych: Normal affect and mood ED course: 72-year-old female presents with viral syndrome. Her tested positive at home for COVID-19 today. Symptomatic for 3 days. Vital signs upon arrival shows blood pressure of 74/49. Nursing notes and chart review was performed Was pt. sent in by a medical professional or institution (, PA, ROLL UP HELPER, urgent care, hospital, or halfway...) When possible be specific @ -No Did you speak to anyone other than the patient for history (EMS, parent, family, police, friend...)? What history was obtained from this source @ -No Did you review nursing and triage notes (agree or disagree)? Why? @ -I reviewed and agree with nursing and triage notes Were old charts reviewed (outside hosp., previous admission, EMS record, old EKG, old radiological studies, urgent care reports/EKG's, halfway records)? Report findings @ -No old charts were reviewed Differential Diagnosis (chest pain, altered mental status, abdominal pain women, abdominal pain men, vaginal bleeding, musculoskeletal, weakness, fever, dyspnea, syncope, headache, dizziness, GI bleed, back pain, seizure, CVA, palpatations, mental health)? @ -Differential Weakness: Hypoglycemia, shock, sepsis, hyponatremia, anemia, infection, NC, ETOH, adverse medicine reaction, overdose, stroke, this is not meant to be an all-inclusive list. EKG interpreted by me (3pts min.). @ -None done X-rays interpreted by me (1pt min.). @ -No acute processes CT interpreted by me (1pt min.). @ -None done U/S interpreted by me (1pt. min.). @ -None done What testing was considered but not performed or refused? (CT, X-rays, U/S, labs)? Why? @ -None What meds were considered but not given or refused? Why? @ -None Did you discuss the management of the patient with other professionals (professionals i.e. , PA, ROLL UP HELPER, lab, RT, psych nurse, social media sr strategy manager, urban renewal manager, teacher, guest relations officer, manager case management)? Give summary @ -Discussed with the primary care physician, Dr. Buchanan Was smoking cessation discussed for >3mins.? @ -No Was critical care preformed (if so, how long)? @ -No Were there social determinants of health that impacted care today? How? (Homelessness, low income, unemployed, alcoholism, drug addiction, transportation, low edu. Level, literacy, decrease access to med. care, prison, rehab)? @ -No Was there de-escalation of care discussed even if they declined (Discuss DNR or withdrawal of care, Hospice)? DNR status @ -No What co-morbidities impacted this encounter? (DM, HTN, Smoking, COPD, CAD, Cancer, CVA, ARF, Chemo, Hep., AIDS, mental health diagnosis, sleep apnea, morbid obesity)? @ -hypertension Was patient admitted / discharged? Hospital course, mention meds given and route, prescriptions, significant lab abnormalities, going to OR and other pertinent info. @ -72-year-old female presents with viral syndrome. Os is for COVID-19. Blood evaluation is unremarkable. Undiagnosed new problem with uncertain prognosis? @ -No Drug Therapy requiring intensive monitoring for toxicity (Heparin, Nitro, Insulin, Cardizem)? @ -No Were any procedures done? @ -No Diagnosis/symptom? Acute, or Chronic, or Acute on Chronic? Uncomplicated (without systemic symptoms) or Complicated (systemic symptoms)? @ -1. Acute COVID-19, 2. Dehydration Side effects of treatment? @ -No Exacerbation, Progression, or Severe Exacerbation? @ -No Poses a threat to life or bodily function? How? (Chest pain, USA, NC, pneumonia, PE, COPD, DKA, ARF, appy, cholecystitis, CVA, Diverticulitis, Homicidal, Suicidal, threat to staff... and all critical care pts) @ -No - Related Data Home Medications Medication Instructions Recorded Confirmed atenoloL [Tenormin] 50 mg PO DAILY 04/14/16 07/14/22 Lisinopril-Hctz 20-25 mg 1 tab PO DAILY 05/04/18 07/14/22 [Zestoretic 20-25] Cholecalciferol [Vitamin D3 (25 50 mcg PO DAILY 03/26/22 07/14/22 Mcg = 1000 Iu)] Aspirin [Children's Aspirin] 81 mg PO DAILY 04/14/22 07/14/22 amLODIPine [Norvasc] 5 mg PO DAILY 04/14/22 07/14/22 Previous Rx's Medication Instructions Recorded Clopidogrel [Plavix] 75 mg PO DAILY #90 tablet 04/16/22 Nitroglycerin Sl Tabs [Nitrostat] 0.4 mg SUBLINGUAL Q5M PRN #25 tab 04/16/22 Molnupiravir [Lagevrio (Eua)] 800 mg PO BID 5 Days #40 cap 07/14/22 Ondansetron Odt [Zofran Odt] 4 mg PO Q8HR PRN #12 tab 07/14/22 Allergies Allergy/AdvReac Type Severity Reaction Status Date / Time No Known Allergies Allergy Verified 07/14/22 10:22 Review of Systems ROS Statement: Those systems with pertinent positive or pertinent negative responses have been documented in the HPI. ROS Other: All systems not noted in ROS Statement are negative. Past Medical History Past Medical History: Cancer, Hypertension, Osteoarthritis (OA) Additional Past Medical History / Comment(s): See Dr Conley's H&P. Hx colon and liver cancer 6 yrs ago. History of Any Multi-Drug Resistant Organisms: None Reported Past Surgical History: Bowel Resection, Cholecystectomy, Hysterectomy Additional Past Surgical History / Comment(s): Lymph node removed from right axilla, colonoscopy, parathyroid surgery, LIVER SURGERY FOR COLON CANCER. Past Anesthesia/Blood Transfusion Reactions: Previous Problems w/ Anesthesia Additional Past Anesthesia/Blood Transfusion Reaction / Comment(s): Aspirated one time from colonoscopy anesthesia. Past Psychological History: No Psychological Hx Reported Smoking Status: Current every day smoker Past Alcohol Use History: None Reported Past Drug Use History: None Reported - Past Family History Mother Family Medical History: Unable to Obtain General Exam Limitations: no limitations Course Vital Signs 07/14/22 07/14/22 07/14/22 09:05 09:30 09:36 Temperature 97.7 F Pulse Rate 68 56 L Respiratory 18 18 18 Rate Blood Pressure 74/49 87/53 O2 Sat by Pulse 97 95 Oximetry 07/14/22 07/14/22 10:01 11:08 Temperature Pulse Rate 51 L 62 Respiratory 18 18 Rate Blood Pressure 116/83 152/84 O2 Sat by Pulse 97 96 Oximetry Medical Decision Making - Lab Data Result diagrams: 07/14/22 09:33 07/14/22 09:33 Lab Results 07/14/22 07/14/22 07/14/22 Range/Units 09:33 09:33 09:33 WBC 3.9 (3.8-10.6) k/uL RBC 4.43 (3.80-5.40) m/uL Hgb 14.4 (11.4-16.0) gm/dL Hct 40.1 (34.0-46.0) % MCV 90.5 (80.0-100.0) fL MCH 32.6 (25.0-35.0) pg MCHC 36.0 (31.0-37.0) g/dL RDW 12.6 (11.5-15.5) % Plt Count 179 (150-450) k/uL MPV 8.4 Neutrophils % 70 % Lymphocytes % 19 % Monocytes % 8 % Eosinophils % 0 % Basophils % 1 % Neutrophils # 2.7 (1.3-7.7) k/uL Lymphocytes # 0.7 L (1.0-4.8) k/uL Monocytes # 0.3 (0-1.0) k/uL Eosinophils # 0.0 (0-0.7) k/uL Basophils # 0.0 (0-0.2) k/uL Hyperchromasia Slight Sodium 134 L (137-145) mmol/L Potassium 3.5 (3.5-5.1) mmol/L Chloride 103 (98-107) mmol/L Carbon Dioxide 19 L (22-30) mmol/L Anion Gap 12 mmol/L BUN 21 H (7-17) mg/dL Creatinine 1.46 H (0.52-1.04) mg/dL Est GFR (CKD-EPI)AfAm 41 (>60 ml/min/1.73 sqM) Est GFR (CKD-EPI)NonAf 35 (>60 ml/min/1.73 sqM) Glucose 110 H (74-99) mg/dL Plasma Lactic Acid Danny (0.7-2.0) mmol/L Calcium 9.9 (8.4-10.2) mg/dL Influenza Type A (PCR) Not Detected (Not Detectd) Influenza Type B (PCR) Not Detected (Not Detectd) RSV (PCR) Not Detected (Not Detectd) SARS-CoV-2 (PCR) Detected A (Not Detectd) 07/14/22 Range/Units 09:33 WBC (3.8-10.6) k/uL RBC (3.80-5.40) m/uL Hgb (11.4-16.0) gm/dL Hct (34.0-46.0) % MCV (80.0-100.0) fL MCH (25.0-35.0) pg MCHC (31.0-37.0) g/dL RDW (11.5-15.5) % Plt Count (150-450) k/uL MPV Neutrophils % % Lymphocytes % % Monocytes % % Eosinophils % % Basophils % % Neutrophils # (1.3-7.7) k/uL Lymphocytes # (1.0-4.8) k/uL Monocytes # (0-1.0) k/uL Eosinophils # (0-0.7) k/uL Basophils # (0-0.2) k/uL Hyperchromasia Sodium (137-145) mmol/L Potassium (3.5-5.1) mmol/L Chloride (98-107) mmol/L Carbon Dioxide (22-30) mmol/L Anion Gap mmol/L BUN (7-17) mg/dL Creatinine (0.52-1.04) mg/dL Est GFR (CKD-EPI)AfAm (>60 ml/min/1.73 sqM) Est GFR (CKD-EPI)NonAf (>60 ml/min/1.73 sqM) Glucose (74-99) mg/dL Plasma Lactic Acid Danny 1.3 (0.7-2.0) mmol/L Calcium (8.4-10.2) mg/dL Influenza Type A (PCR) (Not Detectd) Influenza Type B (PCR) (Not Detectd) RSV (PCR) (Not Detectd) SARS-CoV-2 (PCR) (Not Detectd) Disposition Clinical Impression: Coronavirus infection Disposition: HOME SELF-CARE Condition: Good Instructions (If sedation given, give patient instructions): Coronavirus Disease 2019 (COVID-19) Prescriptions: Molnupiravir [Lagevrio (Eua)] 800 mg PO BID 5 Days #40 cap Ondansetron Odt [Zofran Odt] 4 mg PO Q8HR PRN #12 tab PRN Reason: Nausea Is patient prescribed a controlled substance at d/c from ED?: No Referrals: Catherine Buchanan MD [Primary Care Provider] - 1-2 days Time of Disposition: 11:31
[2022-07-14 10:01] LABS: Calcium 9.9 mg/dL (8.4-10.2)
[2022-07-14 10:11] LABS: Basophils % (A) 1 %; Eosinophils % (A) 0 %; HCT 40.1 % (34.0-46.0); HGB 14.4 gm/dL (11.4-16.0); Hyperchromasia Slight; Lymphocytes # (A) 0.7 k/uL (1.0-4.8); Lymphocytes % (A) 19 %; MCH 32.6 pg (25.0-35.0); MCV 90.5 fL (80.0-100.0); Mean Platelet Volume 8.4; Monocytes # (A) 0.3 k/uL (0-1.0); Monocytes % (A) 8 %; Neutrophils # (A) 2.7 k/uL (1.3-7.7); Neutrophils % (A) 70 %; Platelet Count 179 k/uL (150-450); RBC 4.43 m/uL (3.80-5.40); RDW 12.6 % (11.5-15.5); WBC 3.9 k/uL (3.8-10.6)
[2022-07-14 10:14] LABS: Potassium 3.5 mmol/L (3.5-5.1)
--- NOTE | 2022-07-14 10:35 | XR ---
EXAMINATION TYPE: XR chest 2V DATE OF EXAM: 07/14/2022 COMPARISON: NONE TECHNIQUE: PA and lateral views submitted. HISTORY: Cough FINDINGS: The lungs are clear and there is no pneumothorax, pleural effusion, or focal pneumonia. Heart size normal and no overt failure. Osseous structures demonstrate hypertrophic and degenerative changes of the spine. Atherosclerotic change aorta. Hyperinflation suggests COPD. Calcifications around the jenelle ral neck could represent synovial osteochondromatosis. There is prominence of the aortic knob. Mild a neurysmal dilation in the differential diagnosis IMPRESSION: 1. No acute process. Aortic knob is prominent. Mild aneurysmal dilation differential diagnosis
[2022-07-14 11:08] VITALS: BP 152/84; PULSE 62
== END 2022-07-14 11:45 | disposition home or self-care (01) ==
LOC: EC 09:02
DX: U07.1 COVID-19 (principal); I10 Essential (primary) hypertension; M19.90 Unspecified osteoarthritis, unspecified site; Z79.899 Other long term (current) drug therapy; Z79.82 Long term (current) use of aspirin
CPT/HCPCS: 36415; 71046; 80048; 83605; 85025; 87636; 96360; 99284

== ENCOUNTER 2022-10-27 19:56 | Emergency (ER) | payer MEDICARE ==
[2022-10-27 20:03] VITALS: RESP 18
[2022-10-27] MEDS ORDERED: ONDANSETRON 4 MG/2 ML VIAL IVP STA (20:23)
[2022-10-27] MEDS ORDERED: SODIUM CHLORIDE 0.9% 1,000 ML IV STA (20:23)
[2022-10-27] MEDS ORDERED: KETOROLAC 15 MG/ML 1 ML VIAL IVP STA (20:23)
--- NOTE | 2022-10-27 20:38 | ED ---
Back Pain HPI - General Chief Complaint: Back Pain/Injury Stated Complaint: Vomiting Time Seen by Provider: 10/27/22 20:07 Source: patient, RN notes reviewed Mode of arrival: EMS Limitations: no limitations - History of Present Illness Initial Comments: This is a 72-year-old female who presents to the emergency department for right flank pain. Symptoms started a couple of hours prior to arrival. States that this wraps around into the abdomen and she has associated nausea and vomiting. Reports a history of kidney stones and states that the symptoms feel the same. Denies any urinary symptoms or diarrhea/constipation. Also denies any fevers. She had a kidney stone a few years ago and was able to pass this on her own. Denies any fevers, chills, sore throat, cough, dyspnea, chest pain, palpitations, diarrhea, or headaches. MD Complaint: back pain Similar Symptoms Previously: Yes - Related Data Home Medications Medication Instructions Recorded Confirmed atenoloL [Tenormin] 50 mg PO DAILY 04/14/16 07/14/22 Lisinopril-Hctz 20-25 mg 1 tab PO DAILY 05/04/18 07/14/22 [Zestoretic 20-25] Cholecalciferol [Vitamin D3 (25 50 mcg PO DAILY 03/26/22 07/14/22 Mcg = 1000 Iu)] Aspirin [Children's Aspirin] 81 mg PO DAILY 04/14/22 07/14/22 amLODIPine [Norvasc] 5 mg PO DAILY 04/14/22 07/14/22 Previous Rx's Medication Instructions Recorded Clopidogrel [Plavix] 75 mg PO DAILY #90 tablet 04/16/22 Nitroglycerin Sl Tabs [Nitrostat] 0.4 mg SUBLINGUAL Q5M PRN #25 tab 04/16/22 Molnupiravir [Lagevrio (Eua)] 800 mg PO BID 5 Days #40 cap 07/14/22 Ondansetron Odt [Zofran Odt] 4 mg PO Q8HR PRN #12 tab 07/14/22 HYDROcodone/APAP 7.5-325MG [[place]wood 1 tab PO Q6HR PRN 3 Days #12 tab 10/27/22 7.5-325] Ondansetron Odt [Zofran Odt] 4 mg PO Q8HR PRN #15 tab 10/27/22 Tamsulosin [Flomax] 0.4 mg PO DAILY 7 Days #7 cap 10/27/22 Allergies Allergy/AdvReac Type Severity Reaction Status Date / Time sulfamethoxazole Allergy Unknown Verified 10/27/22 20:04 [From Bactrim] trimethoprim [From Bactrim] Allergy Unknown Verified 10/27/22 20:04 Review of Systems ROS Statement: Those systems with pertinent positive or pertinent negative responses have been documented in the HPI. ROS Other: All systems not noted in ROS Statement are negative. Past Medical History Past Medical History: Cancer, Hypertension, Osteoarthritis (OA) Additional Past Medical History / Comment(s): See Dr Conley's H&P. Hx colon and liver cancer 6 yrs ago. History of Any Multi-Drug Resistant Organisms: None Reported Past Surgical History: Bowel Resection, Cholecystectomy, Hysterectomy Additional Past Surgical History / Comment(s): Lymph node removed from right axilla, colonoscopy, parathyroid surgery, LIVER SURGERY FOR COLON CANCER. Past Anesthesia/Blood Transfusion Reactions: Previous Problems w/ Anesthesia Additional Past Anesthesia/Blood Transfusion Reaction / Comment(s): Aspirated one time from colonoscopy anesthesia. Past Psychological History: No Psychological Hx Reported Smoking Status: Current every day smoker Past Alcohol Use History: None Reported Past Drug Use History: None Reported - Past Family History Mother Family Medical History: Unable to Obtain General Exam Limitations: no limitations General appearance: alert, in distress Head exam: Present: atraumatic, normocephalic, normal inspection Respiratory exam: Present: normal lung sounds bilaterally. Absent: respiratory distress, wheezes, rales, rhonchi, stridor Cardiovascular Exam: Present: regular rate, normal rhythm, normal heart sounds. Absent: systolic murmur, diastolic murmur, rubs, gallop, clicks GI/Abdominal exam: Present: soft, tenderness (RLQ), normal bowel sounds. Absent: distended Back exam: Present: CVA tenderness (R). Absent: CVA tenderness (L) Neurological exam: Present: alert, oriented X3, CN II-XII intact Psychiatric exam: Present: normal affect, normal mood Skin exam: Present: warm, dry, intact, normal color. Absent: rash Course Vital Signs 10/27/22 10/27/22 10/27/22 20:01 21:17 22:21 Temperature 98.9 F 97.8 F Pulse Rate 79 78 Respiratory 18 18 Rate Blood Pressure 194/101 172/94 O2 Sat by Pulse 98 98 Oximetry Medical Decision Making - Medical Decision Making This is a 72-year-old female who presents to the emergency department for right flank pain. Was pt. sent in by a medical professional or institution? @ -No Did you speak to anyone other than the patient for history? @ -No Did you review nursing and triage notes? @ -Yes, and I agree, it is accurate with regards to the patient's symptoms. Were old charts reviewed? @ -No Differential Diagnosis? @ -Differential Back Pain: Strain, zoster, cauda equina syndrome, epidural abscess, vertebral osteomyeli tis, discitis, fracture, subluxation, disc herniation, DJD, spinal stenosis, dissection, AAA, pancreatitis, peptic ulcer disease, pyelonephritis, kidney stone, this is not meant to be an all-inclusive list. EKG interpreted by me (3pts min.)? @ -Not obtained X-rays interpreted by me (1pt min.)? @ -Not obtained CT interpreted by me (1pt min.)? @ -Computed tomography scan of the abdomen and pelvis obtained. My interpretation is identifies a right ureteral calculus. U/S interpreted by me (1pt. min.)? @ -Not obtained What testing was considered but not performed? (CT, X-rays, U/S, labs)? Why? @ -None What meds were considered but not given? Why? @ -None Did you discuss the management of the patient with other professionals? @ -No Did you reconcile home meds? @ -No Was smoking cessation discussed for >3mins.? @ -No Was critical care preformed (if so, how long)? @ -No Were there social determinants of health that impacted care today? How? (Homelessness, low income, unemployed, alcoholism, drug addiction, transportation, low edu. Level, literacy, decrease access to med. care, fpc, rehab)? @ -No Was there de-escalation of care discussed even if they declined? (Discuss DNR or withdrawal of care, Hospice)? @ -No What co-morbidities impacted this encounter? (DM, HTN, Smoking, COPD, CAD, Cancer, CVA, Hep., AIDS, mental health diagnosis, sleep apnea, morbid obesity)? @ -Renal disease Was patient admitted / discharged? @ -Discharged. Lab work obtained revealing mild leukocytosis. Poor kidney function is actually improved when compared with prior values from June 2022. She does also appear to be dehydrated and a 1L bolus of IV fluids was administered. Computed tomography scan of the abdomen and pelvis obtained revealing an 8 x 6 mm right ureteral calculus with mild to moderate hydronephrosis. Findings reviewed with the patient. Advised that given the size of this, it is unlikely that she will pass this on her own. She also required multiple pain medications, including Toradol, morphine, and then Dilaudid. While her pain was controlled in the emergency department, we discussed that it will likely return, and it is unclear how much relief she will have with oral pain medications alone. I offered and recommended admission for pain control and urology evaluation given the size of the stone, however the patient declined. Prescription for [place], Zofran, and Flomax provided with dosing instructions reviewed. Patient cannot take NSAIDs due to renal disease. Advised she take Tylenol as needed for pain relief and to take the [place] sp aringly when her pain is the most severe. Also advised she avoid driving or operating machinery when taking this. Information for urology follow-up provided. She is instructed to contact them first thing in the morning for a follow-up appointment. Undiagnosed new problem with uncertain prognosis? @ -None Drug Therapy requiring intensive monitoring for toxicity (Heparin, Nitro, Insulin, Cardizem)? @ -None Were any procedures done? @ -None Diagnosis/symptom? @ -Right ureteral calculus Acute, or Chronic, or Acute on Chronic? @ -Acute Uncomplicated (without systemic symptoms) or Complicated (systemic symptoms)? @ -Uncomplicated Side effects of treatment? @ -None Exacerbation, Progression, or Severe Exacerbation] @ -Not applicable Poses a threat to life or bodily function? @ -No Return precautions reviewed in depth, the patient is instructed to return to the emergency department with any new, worsening, or concerning symptoms. Patient verbalized understanding. This case was discussed in detail with the attending ED physician, Dr. Montoya. Presentation, findings, and treatment plan discussed in detail as well. - Lab Data Result diagrams: 10/27/22 21:39 10/27/22 20:53 Lab Results 10/27/22 10/27/22 10/27/22 Range/Units 20:53 20:53 20:54 WBC (3.8-10.6) k/uL RBC (3.80-5.40) m/uL Hgb (11.4-16.0) gm/dL Hct (34.0-46.0) % MCV (80.0-100.0) fL MCH (25.0-35.0) pg MCHC (31.0-37.0) g/dL RDW (11.5-15.5) % Plt Count (150-450) k/uL MPV Neutrophils % % Lymphocytes % % Monocytes % % Eosinophils % % Basophils % % Neutrophils # (1.3-7.7) k/uL Lymphocytes # (1.0-4.8) k/uL Monocytes # (0-1.0) k/uL Eosinophils # (0-0.7) k/uL Basophils # (0-0.2) k/uL Sodium 133 L (137-145) mmol/L Potassium 3.5 (3.5-5.1) mmol/L Chloride 99 (98-107) mmol/L Carbon Dioxide 21 L (22-30) mmol/L Anion Gap 13 mmol/L BUN 22 H (7-17) mg/dL Creatinine 1.29 H (0.52-1.04) mg/dL Est GFR (CKD-EPI)AfAm 47 (>60 ml/min/1.73 sqM) Est GFR (CKD-EPI)NonAf 41 (>60 ml/min/1.73 sqM) Glucose 123 H (74-99) mg/dL Plasma Lactic Acid Danny 1.3 (0.7-2.0) mmol/L Calcium 10.4 H (8.4-10.2) mg/dL Total Bilirubin 0.7 (0.2-1.3) mg/dL AST 29 (14-36) U/L ALT 22 (4-34) U/L Alkaline Phosphatase 72 (38-126) U/L Total Protein 8.4 H (6.3-8.2) g/dL Albumin 4.1 (3.5-5.0) g/dL Urine Color Yellow Urine Appearance Clear (Clear) Urine pH 6.5 (5.0-8.0) Ur Specific [place] 1.016 (1.001-1.035) Urine Protein Trace H (Negative) Urine Glucose (UA) Negative (Negative) Urine Ketones Negative (Negative) Urine Blood Small H (Negative) Urine Nitrite Negative (Negative) Urine Bilirubin Negative (Negative) Urine Urobilinogen <2.0 (<2.0) mg/dL Ur Leukocyte Esterase Trace H (Negative) Urine RBC 49 H (0-5) /hpf Urine WBC 6 H (0-5) /hpf Ur Squamous Epith Cells <1 (0-4) /hpf Urine Bacteria Rare H (None) /hpf Urine Mucus Rare H (None) /hpf 10/27/22 Range/Units 21:39 WBC 10.9 H (3.8-10.6) k/uL RBC 3.85 (3.80-5.40) m/uL Hgb 12.6 (11.4-16.0) gm/dL Hct 36.4 (34.0-46.0) % MCV 94.5 (80.0-100.0) fL MCH 32.8 (25.0-35.0) pg MCHC 34.7 (31.0-37.0) g/dL RDW 12.2 (11.5-15.5) % Plt Count 210 (150-450) k/uL MPV 7.6 Neutrophils % 84 % Lymphocytes % 11 % Monocytes % 3 % Eosinophils % 1 % Basophils % 0 % Neutrophils # 9.2 H (1.3-7.7) k/uL Lymphocytes # 1.2 (1.0-4.8) k/uL Monocytes # 0.3 (0-1.0) k/uL Eosinophils # 0.1 (0-0.7) k/uL Basophils # 0.0 (0-0.2) k/uL Sodium (137-145) mmol/L Potassium (3.5-5.1) mmol/L Chloride (98-107) mmol/L Carbon Dioxide (22-30) mmol/L Anion Gap mmol/L BUN (7-17) mg/dL Creatinine (0.52-1.04) mg/dL Est GFR (CKD-EPI)AfAm (>60 ml/min/1.73 sqM) Est GFR (CKD-EPI)NonAf (>60 ml/min/1.73 sqM) Glucose (74-99) mg/dL Plasma Lactic Acid Danny (0.7-2.0) mmol/L Calcium (8.4-10.2) mg/dL Total Bilirubin (0.2-1.3) mg/dL AST (14-36) U/L ALT (4-34) U/L Alkaline Phosphatase (38-126) U/L Total Protein (6.3-8.2) g/dL Albumin (3.5-5.0) g/dL Urine Color Urine Appearance (Clear) Urine pH (5.0-8.0) Ur Specific [place] (1.001-1.035) Urine Protein (Negative) Urine Glucose (UA) (Negative) Urine Ketones (Negative) Urine Blood (Negative) Urine Nitrite (Negative) Urine Bilirubin (Negative) Urine Urobilinogen (<2.0) mg/dL Ur Leukocyte Esterase (Negative) Urine RBC (0-5) /hpf Urine WBC (0-5) /hpf Ur Squamous Epith Cells (0-4) /hpf Urine Bacteria (None) /hpf Urine Mucus (None) /hpf - Radiology Data Radiology results: report reviewed, image reviewed Disposition Clinical Impression: Right ureteral calculus Disposition: HOME SELF-CARE Instructions (If sedation given, give patient instructions): Kidney Stones (ED), Renal Colic (ED) Additional Instructions: Return to the emergency department with any new, worsening, or concerning symptoms. Take Tylenol as needed for pain relief and take the [place] sparingly when your pain is the most severe. Take the Flomax daily until you see urology. You can take the Zofran up to every 8 hours as needed for nausea and vomiting. Contact urology as listed below first thing in the morning for a follow-up appointment. Let them know that you were seen in the emergency department tonight and diagnosed with an 8 mm stone in the ureter. Follow up with your primary care provider in 1-2 days. Prescriptions: Tamsulosin [Flomax] 0.4 mg PO DAILY 7 Days #7 cap HYDROcodone/APAP 7.5-325MG [[place] 7.5-325] 1 tab PO Q6HR PRN 3 Days #12 tab PRN Reason: Pain Ondansetron Odt [Zofran Odt] 4 mg PO Q8HR PRN #15 tab PRN Reason: Nausea And Vomiting Is patient prescribed a controlled substance at d/c from ED?: Yes When asked, does pt state using other controlled substances?: No If prescribed controlled substance>3 days was MAPS reviewed?: Prescribed <3 Days Referrals: Catherine Buchanan MD [Primary Care Provider] - 1-2 days Chris Pro MD [STAFF PHYSICIAN] - 1-2 days
[2022-10-27] MEDS ORDERED: METOCLOPRAMIDE 5 MG/ML 2 ML VIAL IVP STA (21:08)
[2022-10-27 21:14] LABS: ALT 22 U/L (4-34); AST 29 U/L (14-36); African American GFR (CKD) 47 (>60 ml/min/1.73 sqM); Albumin 4.1 g/dL (3.5-5.0); Alkaline Phosphatase 72 U/L (38-126); Anion Gap 13 mmol/L; Blood Urea Nitrogen 22 mg/dL (7-17); Calcium 10.4 mg/dL (8.4-10.2); Carbon Dioxide 21 mmol/L (22-30); Chloride 99 mmol/L (98-107); Glucose 123 mg/dL (74-99); Non-African American GFR(CKD) 41 (>60 ml/min/1.73 sqM); Potassium 3.5 mmol/L (3.5-5.1); Sodium 133 mmol/L (137-145); Total Bilirubin 0.7 mg/dL (0.2-1.3); Total Protein 8.4 g/dL (6.3-8.2)
[2022-10-27] MEDS ORDERED: MORPHINE SULFATE 2 MG/ML SYRINGE IVP STA (21:22)
[2022-10-27 21:25] LABS: Appearance,Urine Clear (Clear); Bacteria,Urine Rare /hpf; Bilirubin,Urine Negative (Negative); Blood,Urine Small (Negative); Color,Urine Yellow; Glucose,Urine (UA) Negative (Negative); Ketones,Urine Negative (Negative); Leukocyte Esterase,Urine Trace (Negative); Mucus,Urine Rare /hpf; Nitrite,Urine Negative (Negative); PH, Urine 6.5 (5.0-8.0); Protein,Urine Trace (Negative); RBC,Urine 49 /hpf (0-5); Specific Gravity,Urine 1.016 (1.001-1.035); Squamous Epithelial Cell,Urine <1 /hpf (0-4); Urobilinogen,Urine <2.0 mg/dL (<2.0); WBC,Urine 6 /hpf (0-5)
[2022-10-27 21:37] VITALS: TEMP 97.8
[2022-10-27 21:46] LABS: Basophils % (A) 0 %; Eosinophils # (A) 0.1 k/uL (0-0.7); Eosinophils % (A) 1 %; HCT 36.4 % (34.0-46.0); HGB 12.6 gm/dL (11.4-16.0); Lymphocytes # (A) 1.2 k/uL (1.0-4.8); Lymphocytes % (A) 11 %; MCH 32.8 pg (25.0-35.0); MCHC 34.7 g/dL (31.0-37.0); MCV 94.5 fL (80.0-100.0); Mean Platelet Volume 7.6; Monocytes # (A) 0.3 k/uL (0-1.0); Monocytes % (A) 3 %; Neutrophils # (A) 9.2 k/uL (1.3-7.7); Neutrophils % (A) 84 %; Platelet Count 210 k/uL (150-450); RBC 3.85 m/uL (3.80-5.40); RDW 12.2 % (11.5-15.5); WBC 10.9 k/uL (3.8-10.6)
--- NOTE | 2022-10-27 22:05 | CT ---
EXAMINATION TYPE: CT abdomen pelvis wo con CT DLP: 611.5 mGycm, Automated exposure control for dose reduction was used. DATE OF EXAM: 10/27/2022 9:58 PM COMPARISON: CT abdomen pelvis most recent from 12/28/2019 CLINICAL INDICATION:Female, 72 years old with history of Right flank pain; Right flank pain TECHNIQUE: Axial CT of the abdomen and pelvis. Sagittal and coronal reformats were created on a [employer] workstation. Contrast used: mL of , (none if empty) Oral contrast used: without Oral Contrast (none if empty) FINDINGS: LOWER CHEST: Unremarkable ABDOMEN LIVER: Unremarkable GALLBLADDER AND BILE DUCTS: Unremarkable. PANCREAS: Unremarkable. SPLEEN: Scattered calcified granulomas within the spleen. ADRENAL GLANDS: Heterogenous complex right adrenal lesion with suspected internal fat measuring up to 4.1 x 2.3 cm with calcifications also present. KIDNEYS AND URETERS: Mild to moderate right hydronephrosis secondary to obstructing calculus at the u reterovesicular junction measuring 8 x 6 mm. No evidence for left obstructive uropathy. Nonobstructin g 3 mm calculus. Left renal cyst present. PELVIS BLADDER: Unremarkable REPRODUCTIVE: Unremarkable. ABDOMEN & PELVIS STOMACH AND BOWEL: No evidence of bowel obstruction. Scattered colonic diverticula. PERITONEUM/RETROPERITONEUM: No evidence of pneumoperitoneum or free fluid. VASCULATURE: Moderate atherosclerotic calcifications are present throughout the abdominal aorta and i ts branches. No evidence of aortic aneurysm. MUSCULOSKELETAL: No acute osseous abnormalities. Mild disc degeneration changes are present throughou t the thoracolumbar spine. Grade 1 anterolisthesis of L4 and L5. No evidence spondylolysis. Multileve l disc degeneration changes of the spine. LYMPH NODES: No gross evidence for lymphadenopathy. SOFT TISSUE/ABDOMINAL WALL: Unremarkable IMPRESSION: 1. Mild to moderate right hydronephrosis secondary to obstructing calculus at the ureterovesicular j unction measuring 8 x 6 mm. 2. Complex right adrenal lesion unchanged from prior in 2019 and could represent occlusion tumor kee alo adrenal lipid rich adenoma with remote post traumatic change. 3. Colonic diverticulosis.
[2022-10-27] MEDS ORDERED: HYDROmorphone 0.5 MG/0.5 ML SYRINGE IVP STA (22:14)
[2022-10-27 22:21] VITALS: BP 172/94; PULSE 78
[2022-10-27] MEDS ORDERED: ONDANSETRON 4 MG ODT STARTER PACK 2 TAB BTL PO STA (22:44)
[2022-10-27] MEDS ORDERED: ACET/COD 300 MG/30 MG STARTER PACK 6 TAB BTL PO STA (22:44)
[2022-10-27] MEDS ORDERED: HYDROcodone/APAP 10-325MG 1 EACH TAB PO ONE (22:45)
== END 2022-10-27 22:58 | disposition home or self-care (01) ==
LOC: EC 19:56
DX: N13.2 Hydronephrosis with renal and ureteral calculous obstruction (principal); E27.9 Disorder of adrenal gland, unspecified; I10 Essential (primary) hypertension; M19.90 Unspecified osteoarthritis, unspecified site; F17.200 Nicotine dependence, unspecified, uncomplicated; Z79.1 Long term (current) use of non-steroidal anti-inflammatories (NSAID); Z79.82 Long term (current) use of aspirin; Z79.899 Other long term (current) drug therapy; Z88.1 Allergy status to other antibiotic agents; Z88.2 Allergy status to sulfonamides
CPT/HCPCS: 36415; 80053; 83605; 85025; 81001; 74176; 99284; 96374; 96375 ×4; 96361; J2765; J2405; J2270; J1885; S0119; J1170

== ENCOUNTER → 2022-11-25 | Outpatient (CLI) | payer MEDICARE ==
--- NOTE | 2022-11-25 12:05 | XR ---
EXAMINATION TYPE: XR KUB DATE OF EXAM: 11/25/2022 COMPARISON: KUB 12/28/2019, CT abdomen pelvis 10/17/2022 HISTORY: N 20.1, kidney stones TECHNIQUE: Supine KUB image of the abdomen is obtained with 2 radiographs FINDINGS: Small bowel demonstrates no evidence for dilatation or air fluid levels. Gas and fecal material is seen in non-distended colon. Few pelvic phleboliths. Vascular sclerosis. Splenic artery calcifications in the left upper quadrant. No definitive renal or ureteral calculi. The lung bases are clear. The osseous structures are intact. Degenerative changes of the lumbar spine. Mild to moderate osteoar thritic changes of the right hip. IMPRESSION: 1. Overall nonobstructive bowel gas pattern. 2. No definitive or ureteral calculi. If there is continued clinical concern, consider further evalua tion with CT abdomen pelvis.
== END | disposition home or self-care (01) ==
LOC: RADXRMAIN 11:38
PROVIDERS: ATTEND Urology
DX: N20.2 Calculus of kidney with calculus of ureter (principal)
CPT/HCPCS: 74018

== ENCOUNTER → 2022-11-25 | Outpatient (CLI) | payer MEDICARE | END | disposition home or self-care (01) | LOC: LABWHC1 11:53 | PROVIDERS: ATTEND Urology | DX: E83.52 Hypercalcemia (principal) | CPT/HCPCS: 36415; 83970 ==

== ENCOUNTER → 2023-01-05 | Outpatient (CLI) | payer MEDICARE | END | disposition home or self-care (01) | LOC: LABPAT 13:16 | PROVIDERS: ATTEND Orthopaedic Surgery | DX: Z01.812 Encounter for preprocedural laboratory examination (principal); Z22.322 Carrier or suspected carrier of Methicillin resistant Staphylococcus aureus; M16.11 Unilateral primary osteoarthritis, right hip | CPT/HCPCS: 87070 ==

== ENCOUNTER → 2023-03-19 | Outpatient (CLI) | payer MEDICARE ==
--- NOTE | 2023-03-22 08:33 | MM ---
Reason for Exam: Screening (asymptomatic). Last mammogram was performed 4 year(s) and 3 month(s) ago. Patient History: Menarche at age 10. First Full-Term at age 14. Left ovary removed at age 30. Right ovary removed at age 30. Hysterectomy at age 30. Postmenopausal. Colorectal cancer, age 43. Hormonal Contraceptives, starting at age 18 for 1 year. Risk Values: Kanchan 5 year model risk: 1.3%. NCI Lifetime model risk: 2.8%. Prior Study Comparison: 06/03/2016 Bilateral Screening Mammogram, [facility]. 09/01/2017 Bilateral Screening Mammogram, [facility]. 12/23/2018 Bilateral Screening Mammogram, [facility]. Tissue Density: The breast tissue is almost entirely fat. Findings: Analyzed By CAD. There is no suspicious group of microcalcifications or new suspicious mass. Overall Assessment: Negative, BI-RAD 1 Management: Screening Mammogram of both breasts in [address] [facility] will attempt to contact patient to return for supplemental views and ultrasound if indicated. Patient should continue monthly self-breast exams. A clinical breast exam by your physician is recommended on an annual basis. This exam should not preclude additional follow-up of suspicious palpable abnormalities. Note on Kanchan scores and lifetime risk: 1. A Kanchan score greater than 3% is considered moderate risk. If this is the case, consider specialist referral to assess eligibility for a risk reducing agent. 2. If overall lifetime risk for the development of breast cancer is 20% or higher, the patient may qualify for future screening with alternating mammogram and breast MRI. Electronically signed and approved by: Willard Mercado DO
== END | disposition home or self-care (01) ==
LOC: RADMAMWWP 10:59
PROVIDERS: ATTEND Internal Medicine
DX: Z12.31 Encounter for screening mammogram for malignant neoplasm of breast (principal); Z78.0 Asymptomatic menopausal state
CPT/HCPCS: 77063; 77067

== ENCOUNTER 2023-04-03 10:07 | Emergency (ER) | payer MEDICARE ==
[2023-04-03 10:32] VITALS: TEMP 97.8
--- NOTE | 2023-04-03 11:33 | ED ---
Recheck HPI - General Chief Complaint: Recheck/Abnormal Lab/Rx Stated Complaint: High Blood Pressure Time Seen by Provider: 04/03/23 11:02 Source: patient, RN notes reviewed Mode of arrival: ambulatory Limitations: no limitations - History of Present Illness Initial Comments: Patient is 73-year-old female presented ER with chief complaint of hypertension. Patient is currently taking amlodipine, lisinopril and atenolol. Her last dose was this morning around 6:30. Patient states yesterday her systolic blood pressure was in the 200s. She denies any headaches, visual disturbances, nausea vomiting, chest pain, shortness of breath. She reports this morning and her systolic blood pressure was in the high 180s/100s which brought her to the ER for evaluation. She reports that her amlodipine was recently increased to 10 mg on Wednesday, [id number], by her primary care physician. - Related Data Home Medications Medication Instructions Recorded Confirmed atenoloL [Tenormin] 50 mg PO DAILY 04/14/16 01/07/23 Aspirin [Children's Aspirin] 81 mg PO DAILY 04/14/22 01/07/23 amLODIPine [Norvasc] 5 mg PO DAILY 04/14/22 01/07/23 Ezetimibe [Zetia] 10 mg PO DAILY 01/07/23 01/07/23 Ibuprofen [Advil] 200 mg PO Q6HR PRN 01/07/23 01/07/23 lisinopriL [Zestril] 20 mg PO DAILY 01/07/23 01/07/23 traMADol HCL 50 mg PO Q6H PRN 01/07/23 01/07/23 Previous Rx's Medication Instructions Recorded Clopidogrel [Plavix] 75 mg PO DAILY #90 tablet 04/16/22 Nitroglycerin Sl Tabs [Nitrostat] 0.4 mg SUBLINGUAL Q5M PRN #25 tab 04/16/22 HYDROcodone/APAP 5-325MG [[place] 1 - 2 tab PO Q6HR PRN #36 tab 01/13/23 5-325] Sennosides/Docusate Sodium [Senna 1 each PO DAILY #20 capsule 01/13/23 Plus 8.6-50 mg Softgel] Allergies Allergy/AdvReac Type Severity Reaction Status Date / Time sulfamethoxazole Allergy Unknown Verified 04/03/23 10:12 [From Bactrim] trimethoprim [From Bactrim] Allergy Unknown Verified 04/03/23 10:12 Review of Systems ROS Statement: Those systems with pertinent positive or pertinent negative responses have been documented in the HPI. ROS Other: All systems not noted in ROS Statement are negative. Past Medical History Past Medical History: Cancer, Hypertension, Osteoarthritis (OA) Additional Past Medical History / Comment(s): See Dr Conley's H&P. Hx colon and liver cancer 6 yrs ago. History of Any Multi-Drug Resistant Organisms: None Reported Past Surgical History: Bowel Resection, Cholecystectomy, Hysterectomy Additional Past Surgical History / Comment(s): Lymph node removed from right axilla, colonoscopy, parathyroid surgery, LIVER SURGERY FOR COLON CANCER. Past Anesthesia/Blood Transfusion Reactions: Previous Problems w/ Anesthesia Additional Past Anesthesia/Blood Transfusion Reaction / Comment(s): Aspirated one time from colonoscopy anesthesia. Past Psychological History: No Psychological Hx Reported Smoking Status: Current every day smoker Past Alcohol Use History: None Reported Past Drug Use History: None Reported - Past Family History Mother Family Medical History: No Reported History General Exam Limitations: no limitations General appearance: alert, in no apparent distress Head exam: Present: atraumatic, normocephalic, normal inspection Eye exam: Present: normal appearance, PERRL, EOMI. Absent: scleral icterus, conjunctival injection, periorbital swelling Pupils: Present: normal accommodation Respiratory exam: Present: normal lung sounds bilaterally. Absent: respiratory distress, wheezes, rales, rhonchi, stridor Cardiovascular Exam: Present: regular rate, normal rhythm, normal heart sounds. Absent: systolic murmur, diastolic murmur, rubs, gallop, clicks Extremities exam: Present: normal inspection, full ROM, normal capillary refill. Absent: tenderness, pedal edema, joint swelling, calf tenderness Neurological exam: Present: alert, oriented X3, CN II-XII intact Psychiatric exam: Present: normal affect, normal mood Skin exam: Present: warm, dry, intact, normal color. Absent: rash Course Vital Signs 04/03/23 04/03/23 10:10 12:07 Temperature 97.8 F Pulse Rate 71 68 Respiratory 20 18 Rate Blood Pressure 187/102 178/96 O2 Sat by Pulse 99 98 Oximetry Medical Decision Making - Medical Decision Making Was pt. sent in by a medical professional or institution (Dr., PA, MECHANIC HELPER, urgent care, hospital, or fpc...) When possible be specific @ -No Did you speak to anyone other than the patient for history (EMS, parent, family, police, friend...)? What history was obtained from this source @ -No Did you review nursing and triage notes (agree or disagree)? Why? @ -I reviewed and agree with nursing and triage notes Were old charts reviewed (outside hosp., previous admission, EMS record, old EKG, old radiological studies, urgent care reports/EKG's, fpc records)? Report findings @ -No old charts were reviewed Differential Diagnosis (chest pain, altered mental status, abdominal pain women, abdominal pain men, vaginal bleeding, weakness, fever, dyspnea, syncope, headach e, dizziness, GI bleed, back pain, seizure, CVA, palpatations, mental health, musculoskeletal)? @ -Differential Chest Pain: Stable Angina, Unstable Angina, STEMI, NSTEMI Aortic Dissection, Pneumothorax, Musculoskeletal, Esophageal Spasm GERD, Cholecystitis, Pancreatitis, Zoster, this is not meant to be an all-inclusive list. EKG interpreted by me (3pts min.). @ -As above X-rays interpreted by me (1pt min.). @ -None done CT interpreted by me (1pt min.). @ -None done U/S interpreted by me (1pt. min.). @ -None done What testing was considered but not performed or refused? (CT, X-rays, U/S, labs)? Why? @ -None What meds were considered but not given or refused? Why? @ -None Did you discuss the management of the patient with other professionals (professionals i.e. , PA, MECHANIC HELPER, lab, RT, psych nurse, social and political studies professor, grip assembler, teacher, fare enforcement officer, case investigator)? Give summary @ -No Was smoking cessation discussed for >3mins.? @ -No Was critical care preformed (if so, how long)? @ -No Were there social determinants of health that impacted care today? How? (Homelessness, low income, unemployed, alcoholism, drug addiction, transportation, low edu. Level, literacy, decrease access to med. care, long-term, rehab)? @ -No Was there de-escalation of care discussed even if they declined (Discuss DNR or withdrawal of care, Hospice)? DNR status @ -No What co-morbidities impacted this encounter? (DM, HTN, Smoking, COPD, CAD, Cancer, CVA, ARF, Chemo, Hep., AIDS, mental health diagnosis, sleep apnea, morbid obesity)? @ -Hypertension Was patient admitted / discharged? Hospital course, mention meds given and route, prescriptions, significant lab abnormalities, going to OR and other pert inent info. @ -Discharge. Patient is a 73-year-old female presented to ER with chief complaint of hypertension. Upon examinations patient's blood pressure was 187/102. Physical exam was unremarkable. EKG showed normal sinus rhythm with sinus arrhythmia. There were no acute ST segment or T-wave abnormalities. Labs obtained in the ER were unimpressive. Blood pressure recheck was 178/96. Patient received PO 10mg lisinopril. I discussed with patient to continue blood pressure medications as prescribed. Return parameters were discussed. Patient will be discharged in stable condition with follow-up to PCP. Patient expressed understanding and agreement with care plan. Undiagnosed new problem with uncertain prognosis? @ -No Drug Therapy requiring intensive monitoring for toxicity (Heparin, Nitro, Insulin, Cardizem)? @ -No Were any procedures done? @ -No Diagnosis/symptom? @ -Hypertension Acute, or Chronic, or Acute on Chronic? @ -Chronic Uncomplicated (without systemic symptoms) or Complicated (systemic symptoms)? @ -Uncomplicated Side effects of treatment? @ -No Exacerbation, Progression, or Severe Exacerbation? @ -No Poses a threat to life or bodily function? How? (Chest pain, USA, MS, pneumonia, PE, COPD, DKA, ARF, appy, cholecystitis, CVA, Diverticulitis, Homicidal, Suicidal, threat to staff... and all critical care pts) @ -No - Lab Data Result diagrams: 04/03/23 11:41 04/03/23 11:41 Lab Results 04/03/23 04/03/23 Range/Units 11:41 11:41 WBC 6.1 (3.8-10.6) k/uL RBC 4.00 (3.80-5.40) m/uL Hgb 13.1 (11.4-16.0) gm/dL Hct 36.8 (34.0-46.0) % MCV 91.9 (80.0-100.0) fL MCH 32.8 (25.0-35.0) pg MCHC 35.7 (31.0-37.0) g/dL RDW 13.2 (11.5-15.5) % Plt Count 216 (150-450) k/uL MPV 7.7 Sodium 139 (137-145) mmol/L Potassium 3.5 (3.5-5.1) mmol/L Chloride 105 (98-107) mmol/L Carbon Dioxide 25 (22-30) mmol/L Anion Gap 9 mmol/L BUN 19 H (7-17) mg/dL Creatinine 0.74 (0.52-1.04) mg/dL Est GFR (CKD-EPI)AfAm >90 (>60 ml/min/1.73 sqM) Est GFR (CKD-EPI)NonAf 80 (>60 ml/min/1.73 sqM) Glucose 92 (74-99) mg/dL Calcium 10.1 (8.4-10.2) mg/dL Total Bilirubin 0.5 (0.2-1.3) mg/dL AST 23 (14-36) U/L ALT 16 (4-34) U/L Alkaline Phosphatase 101 (38-126) U/L Total Protein 7.9 (6.3-8.2) g/dL Albumin 3.7 (3.5-5.0) g/dL - EKG Data -: EKG Interpreted by Me EKG Comments: EKG taken at 11:44 shows a normal sinus rhythm with sinus arrhythmia. There is no acute ST segment or T-wave abnormalities noted. Ventricular rate 71, WA interval 211, QRS duration 98, QT/QTC 415/437. Disposition Clinical Impression: Hypertension Disposition: HOME SELF-CARE Condition: Stable Additional Instructions: Please return to the Emergency Department if symptoms worsen or any other concerns. Please continue taking medications as prescribed. Is patient prescribed a controlled substance at d/c from ED?: No Referrals: Catherine Buchanan MD [Primary Care Provider] - 1-2 days Time of Disposition: 12:20
[2023-04-03 11:58] LABS: HCT 36.8 % (34.0-46.0); HGB 13.1 gm/dL (11.4-16.0); MCH 32.8 pg (25.0-35.0); MCHC 35.7 g/dL (31.0-37.0); MCV 91.9 fL (80.0-100.0); Mean Platelet Volume 7.7; Platelet Count 216 k/uL (150-450); RDW 13.2 % (11.5-15.5); WBC 6.1 k/uL (3.8-10.6)
[2023-04-03 12:08] LABS: ALT 16 U/L (4-34); AST 23 U/L (14-36); African American GFR (CKD) >90 (>60 ml/min/1.73 sqM); Albumin 3.7 g/dL (3.5-5.0); Alkaline Phosphatase 101 U/L (38-126); Anion Gap 9 mmol/L; Blood Urea Nitrogen 19 mg/dL (7-17); Calcium 10.1 mg/dL (8.4-10.2); Carbon Dioxide 25 mmol/L (22-30); Chloride 105 mmol/L (98-107); Glucose 92 mg/dL (74-99); Non-African American GFR(CKD) 80 (>60 ml/min/1.73 sqM); Potassium 3.5 mmol/L (3.5-5.1); Sodium 139 mmol/L (137-145); Total Bilirubin 0.5 mg/dL (0.2-1.3); Total Protein 7.9 g/dL (6.3-8.2)
[2023-04-03] MEDS ORDERED: lisinopriL 10 MG TAB PO STA (12:19)
[2023-04-03 12:24] VITALS: PULSE 68; RESP 18
[2023-04-03 13:08] VITALS: BP 171/91
== END 2023-04-03 12:58 | disposition home or self-care (01) ==
LOC: EC 10:07
DX: I10 Essential (primary) hypertension (principal); I44.0 Atrioventricular block, first degree; F17.200 Nicotine dependence, unspecified, uncomplicated; Z79.82 Long term (current) use of aspirin; Z79.899 Other long term (current) drug therapy; Z88.2 Allergy status to sulfonamides; Z88.1 Allergy status to other antibiotic agents
CPT/HCPCS: 36415; 80053; 85027; 93005; 99283

== ENCOUNTER → 2023-05-14 | Outpatient (CLI) | payer MEDICARE | END | disposition home or self-care (01) | LOC: LABWHC1 13:32 | PROVIDERS: ATTEND Internal Medicine | DX: E83.52 Hypercalcemia (principal) | CPT/HCPCS: 36415; 82330; 83970 ==

== ENCOUNTER 2024-10-05 09:01 | Day surgery (SDC) | payer MEDICARE ==
[2024-10-05] MEDS ORDERED: LIDOCAINE 1% (10MG/ML) FOR IV START INTRADERMA PRN (09:27)
[2024-10-05] MEDS: IV FLUID CONTINUATION 1,000 ML IV ONE (09:28)
[2024-10-05 09:41] VITALS: TEMP 97.2
[2024-10-05 09:42] LABS: Glucose,Whole Blood 108 mg/dL (70-110)
[2024-10-05] MEDS: LACTATED RINGERS 1,000 ML IV SCH (09:55)
[2024-10-05] MEDS ORDERED: PROPOFOL 10 MG/ML 20 ML VIAL IV ONE (10:46)
[2024-10-05] MEDS ORDERED: LIDOCAINE 1% INJ 10MG/ML (20 ML MDV) ONE (10:46)
--- NOTE | 2024-10-05 11:13 | P.PCN ---
Date of Procedure: 10/05/24 Preoperative Diagnosis: Melena Postoperative Diagnosis: Diverticulosis Internal hemorrhoid Procedure(s) Performed: Colonoscopy Anesthesia: MAC Surgeon: James Harman Pathology: none sent Condition: stable Disposition: same day Indications for Procedure: 74-year-old female with recent blood in her stool. Risks, benefits and alternatives were provided to the patient. All questions answered prior to attending the endoscopy suite. Operative Findings: Diverticulosis Internal hemorrhoid Description of Procedure: The patient was brought to the endoscopy suite and placed in left lateral decubitus position and adequate sedation was achieved using conscious sedation. Digital rectal exam was performed and mild internal hemorrhoids were palpated. An endoscope was then placed in the rectum and advanced to the cecum as identified by landmarks including the appendiceal orifice and the ileocecal valve. The prep was good. The colonoscope was then slowly withdrawn, examining for any mucosal abnormalities. The cecum, ascending, transverse, descending and sigmoid colon were visualized adequately. There were no large neoplastic lesions noted throughout the colon. No obvious polyps noted throughout the colon. Significant number of diverticulosis noted in the sigmoid colon. Hemostasis was maintained. Retroflexion was performed in the rectum and internal hemorrhoid. Excess air was removed, the colonoscope withdrawn and the procedure terminated. The patient was then transferred to the recovery unit in stable condition. Repeat colonoscopy should be performed based on symptoms due to the patient's age..
[2024-10-05 11:42] VITALS: BP 135/92; PULSE 69; RESP 18
== END 2024-10-05 12:07 | disposition home or self-care (01) ==
LOC: ORWHC2ENDO 09:01
PROVIDERS: ATTEND Surgery
DX: K57.30 Diverticulosis of large intestine without perforation or abscess without bleeding (principal); K64.8 Other hemorrhoids
CPT/HCPCS: 45378; J2003; J2704